=== PATIENT | male | born 1985 | race Caucasian/White ===

== ENCOUNTER 2020-11-15 09:06 | Emergency (ER) | payer OTHER ==
[~2020-11-15] VITALS: Ht 167.6 cm; Wt 102.1 kg
[2020-11-15 09:36] VITALS: BP 100/59
--- NOTE | 2020-11-15 10:53 | NUR ---
DR. BANDA BEDSIDE EVALUATING PT
[2020-11-15] MEDS ORDERED: KETOROLAC 30 MG/ML VIAL IVP ONE (11:00)
[2020-11-15] MEDS ORDERED: NACL 0.9% 1,000 ML IV ONE (11:00)
[2020-11-15] MEDS ORDERED: LORazepam 2 MG/ML VIAL IVP ONE (11:00)
--- NOTE | 2020-11-15 11:12 | NUR ---
35 Y MALE WITH C/O ANXIETY, FOR PAST 2 WEEKS DUE TO BINDGE DRINKING. PER PT HE AHS BEEN DRINKING NON-STOP FOR THE PAST 2 WEEKS. PT HAS C/O OF +N/-V, LIGHTHEADNESS, DIZZINESS, AND OVERALL WEAKNESS. PT STATED HE HAS NOT EATEN ANYTHING FOR THE PAST 2-3 DAYS. UPON ASSESSMENT BREATH SOUNDS CLEAR, S1/S2 HEARD, HYPOACTIVE BOWEL SOUNDS. NKA PMH:ANXIETY
[2020-11-15] MEDS ORDERED: IBUP-2213 PO (11:34)
[2020-11-15] MEDS ORDERED: LIB25 PO (11:34)
[2020-11-15] MEDS ORDERED: ONDA8TAB87 PO (12:09)
[2020-11-15] MEDS ORDERED: ONDANSETRON 4 MG/2 ML VIAL IVP ONE (12:10)
[2020-11-15 12:21] VITALS: BP 146/95
--- NOTE | 2020-11-15 12:21 | NUR ---
Patient discharged with v/s stable. Written and verbal after care instructions given and explained. Patient alert, oriented and verbalized understanding of instructions. Ambulatory with steady gait. All questions addressed prior to discharge. ID band removed. Patient advised to follow up with PMD. Rx of ZOFRAN, IBUPROFEN, AND LIBRIUM given. Patient educated on indication of medication including possible reaction and side effects. Opportunity to ask questions provided and answered.
== END 2020-11-15 12:21 | disposition home or self-care (01) ==
LOC: MED 09:06
DX: F10.239 Alcohol dependence with withdrawal, unspecified (principal); F41.9 Anxiety disorder, unspecified
CPT/HCPCS: 96361; 96374; 96375; 99284; J1885; J2060; J2405; J7030

== ENCOUNTER 2022-06-12 00:05 | Emergency (ER) | payer OTHER ==
[~2022-06-12] VITALS: Ht 162.6 cm; Wt 104.3 kg
[~2022-06-12 00:05] MED LIST: IBUP-2213 PO; LIB25 PO; ONDA8TAB87 PO
[2022-06-12 00:11] VITALS: BP 173/103
--- NOTE | 2022-06-12 00:11 | NUR ---
PT TAKEN TO BED 11
--- NOTE | 2022-06-12 00:11 | NUR ---
36 yo m bib self with c/c of 5/10 chest pain x1day. pt states he feels he is going through alcohol withdraw. last drink was yesterday. pt states he was [place] and nothing was done for him per pt. pt states he needs something for anxiety hx:anxiety nka
[2022-06-12] MEDS ORDERED: LORazepam 1 MG TAB PO ONE (02:25)
[2022-06-12 02:33] LABS: BARBITURATE, URINE NEGATIVE ng/ml (NEG <=200); BENZODIAZEPINE, URINE POSITIVE ng/mL (NEG <=200); CANNABINOID, URINE POSITIVE ng/mL (NEG <=50); COCAINE, URINE NEGATIVE ng/mL (NEG <=300); OPIATE, URINE NEGATIVE ng/mL (NEG <=2000); PHENCYCLIDINE SCREEN,URINE NEGATIVE ng/mL (NEG <=25)
[2022-06-12] MEDS ORDERED: NACL 0.9% 1,000 ML IV ONE ×2 (02:35→03:45)
[2022-06-12] MEDS ORDERED: LORazepam 2 MG/ML VIAL IVP ONE (02:35)
[2022-06-12] MEDS ORDERED: LORazepam 1 MG TAB PO SCH (02:55)
[2022-06-12] MEDS ORDERED: ATI.5 PO (03:04)
--- NOTE | 2022-06-12 03:45 | NUR ---
PT ASKING FOR ANOTHER FLUID, HE SAID HE STILL FEELING WEEK. MD NOTIFIED
[2022-06-12] MEDS ORDERED: ONDANSETRON 4 MG/2 ML VIAL IVP ONE (04:20)
--- NOTE | 2022-06-12 04:25 | NUR ---
PT FEEL NAUSEATED. MD NOTIFIED
[2022-06-12 04:53] VITALS: BP 144/92
--- NOTE | 2022-06-12 04:54 | NUR ---
Patient discharged with v/s stable. Written and verbal after care instructions given and explained. Patient verbalized understanding. Ambulatory with steady gait. All questions addressed prior to discharge. Advised to follow up with PMD. PT LEFT WITH HIS BELONGINGS
== END 2022-06-12 04:54 | disposition home or self-care (01) ==
LOC: MED 00:05
DX: F41.9 Anxiety disorder, unspecified (principal); F10.239 Alcohol dependence with withdrawal, unspecified; Z79.899 Other long term (current) drug therapy; Y90.9 Presence of alcohol in blood, level not specified
CPT/HCPCS: 71045; 80305; 93005; 96361; 96374; 96375; 99285; J2060; J2405; J7030; Q0092

== ENCOUNTER 2023-02-17 12:18 | Outpatient (CLI) | payer OTHER ==
[~2023-02-17 12:18] MED LIST changes: +ATI.5 PO
[2023-02-17 12:57] LABS: BASOPHILS % (AUTO) 0.4 % (0.0-2.0); EOSINOPHILS # (AUTO) 0.3 K/uL (0-0.4); EOSINOPHILS % (AUTO) 2.4 % (0.0-4.0); HEMATOCRIT 45.9 % (36-52); HEMOGLOBIN 14.8 g/dL (12.0-18.0); LYMPHOCYTES # (AUTO) 3.7 K/uL (2.0-11.5); LYMPHOCYTES % (AUTO) 28.7 % (20.5-51.1); MEAN CORPUSCULAR HEMOGLOBIN 28 pg (27-31); MEAN CORPUSCULAR HGB CONC 32 g/dL (33-37); MEAN CORPUSCULAR VOLUME 86.7 fL (80-94); MONOCYTES # (AUTO) 0.7 K/uL (0.8-1.0); MONOCYTES % (AUTO) 5.5 % (1.7-9.3); PLATELET COUNT (AUTO) 305 K/uL (140-450); RED CELL DISTRIBUTION WIDTH 14.8 % (11.6-13.7); WHITE BLOOD COUNT (AUTO) 12.7 K/uL (4.8-10.8)
[2023-02-17 13:16] LABS: ALBUMIN 3.2 g/dL (3.4-5.0); ANION GAP 11.2 (8-16); BILIRUBIN,DIRECT 0.1 mg/dL (0.0-0.3); CALCIUM 8.4 mg/dL (8.5-10.1); CHOL/HDL RATIO 3.5 (1-4.5); POTASSIUM 4.2 mmol/L (3.5-5.1); TOTAL BILIRUBIN 0.5 mg/dL (0.0-1.0); TOTAL PROTEIN, SERUM 7.2 g/dL (6.4-8.2)
== END 2023-02-17 20:34 | disposition home or self-care (01) ==
LOC: MLB 12:18
PROVIDERS: ATTEND Internal Medicine
DX: Z00.00 Encounter for general adult medical examination without abnormal findings (principal)
CPT/HCPCS: 36415; 80053; 80076; 84402; 85025